=== PATIENT | female | born 1980 | race Caucasian/White ===

== ENCOUNTER 2019-06-04 19:29 | Emergency (ER) | payer BC ==
[2019-06-04 20:02] LABS: CHLORIDE,CL 98 mEq/L (98-106); SODIUM,NA 132 mEq/L (136-145)
--- NOTE | 2019-06-04 20:33 | EDM.PDOC ---
ED HPI GENERAL MEDICAL PROBLEM - General Chief Complaint: General Stated Complaint: Difficulty taking a deep breath Time Seen by Provider: 06/04/19 20:00 Source of Information: Reports: Patient History Limitations: Reports: No Limitations - History of Present Illness INITIAL COMMENTS - FREE TEXT/NARRATIVE: Patient presents to ER with complaints of increased shortness of breath and cough. Symptoms started on Monday but felt "worse today, started to get dizzy ". Denies any fever. Mild sinus congestion. No sore throat or ear pain. No nausea/vomiting or diarrhea. Has not travelled outside of [place] since March. Does work at the [employer], minimal exposure. Has no known exposure to COVID-19. Onset: Gradual Duration: Day(s):, Getting Worse Location: Reports: Chest Improves with: Reports: Other (bending forward) Associated Symptoms: Reports: Cough, Shortness of Breath. 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 Denies: Ear Pain, Sinus Problem, Throat Pain Respiratory: Reports: Shortness of Breath, Cough. Denies: Sputum Cardiovascular: Denies: Chest Pain, Edema, Lightheadedness Endocrine: Denies: Fatigue GI/Abdominal: Denies: Abdominal Pain, Nausea, Vomiting : Denies: Dysuria Musculoskeletal: Reports: No Symptoms Skin: Reports: No Symptoms Neurological: Reports: Dizziness ED EXAM, GENERAL - Physical Exam Exam: See Below Exam Limited By: No Limitations General Appearance: Alert, WD/WN, No Apparent Distress Ears: Normal External Exam, Normal TMs Nose: Normal Inspection, Normal Mucosa, No Blood Throat/Mouth: Normal Inspection, Normal Oropharynx Head: Normocephalic Neck: Normal Inspection, Supple, Non-Tender Respiratory/Chest: No Respiratory Distress, Rhonchi Cardiovascular: Regular Rate, Rhythm Neurological: Alert, Oriented Skin Exam: Warm, Dry Course - Vital Signs Last Recorded V/S: Last Vital Signs Temp 97.9 F 06/04/19 19:45 Pulse 97 06/04/19 19:45 Resp 18 06/04/19 20:06 BP 134/84 06/04/19 20:06 Pulse Ox 98 06/04/19 20:06 - Orders/Labs/Meds Orders: Active Orders 24 hr Category Date Time Status CXR [Chest 2V] [CR] Stat Exams 06/04/19 19:44 Taken CORONAVIRUS COVID-19 PCR PHL Stat Lab 06/04/19 20:25 Received Labs: Laboratory Tests 06/04/19 06/04/19 06/04/19 Range/Units 19:55 19:55 19:55 WBC 10.5 H (5.0-10.0) 10^3/uL RBC 4.49 (4.00-5.50) 10^6/uL Hgb 13.1 (12.0-16.0) g/dL Hct 40.1 (37.0-47.0) % MCV 89.3 (82.0-94.0) fL MCH 29.2 (27.0-32.0) pg MCHC 32.7 L (33.0-38.0) g/dL RDW Coeff of [place] 13.3 (11.0-15.0) % Plt Count 235 (150-400) 10^3/uL MPV 10.6 fL D-Dimer, Quantitative 0.19 (0.00-0.50) Sodium 132 L (136-145) mEq/L Potassium 3.9 (3.5-5.0) mEq/L Chloride 98 (98-106) mEq/L Carbon Dioxide 27 (21-32) mmol/L BUN 14 D (7-18) mg/dL Creatinine 0.9 (0.6-1.0) mg/dL Est Cr Clr Drug Dosing 67.69 mL/min Estimated GFR (MDRD) > 60 (>=60) mL/min Glucose 213 H D (75-99) mg/dL Calcium 9.7 (8.4-10.1) mg/dL C-Reactive Protein 1.6 H (0.2-0.8) mg/dL Meds: Medications Discontinued Medications Generic Name Dose Route Start Last Admin Trade Name Su PRN Reason Stop Dose Admin Azithromycin 500 mg 06/04/19 20:30 Zithromax PO 06/04/19 20:31 ONETIME ONE - Re-Assessments/Exams Free Text/Narrative Re-Assessment/Exam: 06/04/19 2030 labs show mildly elevated WBC at 10.5, CRP 1.6. Sodium 132. Discussed labs with patient. First dose of Zithromax given in the ER. Advised to increase salt intake. Repeat labs next week. Will call with COVID results once received. No work until results received. Departure - Departure Time of Disposition: 20:31 Disposition: Home, Self-Care 01 Condition: Fair Clinical Impression: Bronchitis - Discharge Information *PRESCRIPTION DRUG MONITORING PROGRAM REVIEWED*: No *COPY OF PRESCRIPTION DRUG MONITORING REPORT IN PATIENT PATY: No Instructions: Upper Respiratory Infection, Adult Referrals: Jessica Mercado PA [Primary Care Provider] - Forms: ED Department Discharge Additional Instructions: 1. Push fluids 2. Increase salt intake 3. Follow up for repeat labs in one week to recheck sodium 4. Zithromax as directed 5. Ventolin inhaler~ 2 puffs every 4-6 hours as needed 6. We will call you with COVID testing once received. 7. Return with increased shortness of breath or concerns. 8. no work until results received. Sepsis Event Note - Evaluation Sepsis Screening Result: No Definite Risk - Focused Exam Vital Signs: Vital Signs Temp Pulse Resp BP Pulse Ox 06/04/19 20:06 18 134/84 98 06/04/19 19:45 97.9 F 97 18 148/95 H 100 Date Exam was Performed: 06/04/19 Time Exam was Performed: 20:36 - My Orders Last 24 Hours: My Active Orders 06/04/19 19:44 CXR [Chest 2V] [CR] Stat 06/04/19 20:25 CORONAVIRUS COVID-19 PCR PHL Stat - Assessment/Plan Last 24 Hours: My Active Orders 06/04/19 19:44 CXR [Chest 2V] [CR] Stat 06/04/19 20:25 CORONAVIRUS COVID-19 PCR PHL Stat
[2019-06-04] MEDS: Azithromycin 250 MG Tab PO ONE (20:38)
== END 2019-06-04 20:40 | disposition home or self-care (01) ==
LOC: CC.ED 19:29
DX: J40 Bronchitis, not specified as acute or chronic (principal); F17.210 Nicotine dependence, cigarettes, uncomplicated
CPT/HCPCS: 36415; 71046; 80048; 85027; 85379; 86140; 99285-25; A9270-GY; U0002